=== PATIENT | female | born 1995 | race Two or more races ===

== ENCOUNTER 2020-07-07 09:22 | Emergency (ER) | payer OTHER ==
[~2020-07-07] VITALS: Ht 160 cm; Wt 90.1 kg
[2020-07-07] MEDS ORDERED: predniSONE 10 MG TABLET PO ONE (10:15)
[2020-07-07] MEDS ORDERED: ONDANSETRON ODT 4 MG TAB.RAPDIS. PO ONE (10:15)
--- NOTE | 2020-07-07 10:54 | PHYS DOC ---
Past Medical History Past Medical History: No Pertinent History Past Surgical History: Other Additional Past Surgical Histo: hernia Smoking Status: Never Smoker Alcohol Use: None General Adult EDM: Chief Complaint: FEVER HPI: HPI: Patient is a 24 year old female with no significant medical history presenting today complaining of body aches, diarrhea, vomiting, subjective fevers, symptoms began yesterday. Patient denies any abdominal pain. Denies any chance she is . Denies any hematuria chills or melena. Review of Systems: Review of Systems: Constitutional: Reports body aches and subjective fevers Eyes: Denies change in visual acuity. [] HENT: Denies nasal congestion or sore throat. [] Respiratory: Denies cough or shortness of breath. [] Cardiovascular: Denies chest pain or edema. [] GI: Reports nausea, vomiting, diarrhea. Denies abdominal pain, bloody stools : Denies dysuria. [] Musculoskeletal: Denies back pain or joint pain. [] Integument: Denies rash. [] Neurologic: Denies headache, focal weakness or sensory changes. [] Psychiatric: Denies depression or anxiety. [] Heart Score: Risk Factors: Risk Factors: DM, Current or recent (<one month) smoker, HTN, HLP, family history of CAD, obesity. Risk Scores: Score 0 - 3: 2.5% MACE over next 6 weeks - Discharge Home Score 4 - 6: 20.3% MACE over next 6 weeks - Admit for Clinical Observation Score 7 - 10: 72.7% MACE over next 6 weeks - Early Invasive Strategies Current Medications: Current Medications Medications (Trade) Dose Ordered Sig/[facility] Start Time Stop Time Status Last Admin Dose Admin Ondansetron HCl (Zofran Odt) 4 mg 1X ONCE 07/07/20 10:15 07/07/20 10:36 DC Prednisone (Prednisone) 50 mg 1X ONCE 07/07/20 10:15 07/07/20 10:36 DC Allergies: Allergies: Allergies Coded Allergies Type Severity Reaction Last Updated Verified No Known Drug Allergies 07/07/20 No Physical Exam: PE: Constitutional: Well developed, well nourished, no acute distress, non-toxic appearance. [] HENT: Normocephalic, atraumatic, bilateral external ears normal, oropharynx moist, no oral exudates, nose normal. [] Eyes: PERRLA, EOMI, conjunctiva normal, no discharge. [] Neck: Normal range of motion, no tenderness, supple, no stridor. [] Cardiovascular:Heart rate regular rhythm, no murmur [] Lungs & Thorax: Bilateral breath sounds clear to auscultation [] Abdomen: Bowel sounds normal, soft, no tenderness, no masses, no pulsatile masses. [] Skin: Warm, dry, no erythema, no rash. [] Back: No tenderness, no CVA tenderness. [] Extremities: No tenderness, no cyanosis, no clubbing, ROM intact, no edema. [] Neurologic: Alert and oriented X 3, normal motor function, normal sensory function, no focal deficits noted. [] Psychologic: Affect normal, judgement normal, mood normal. [] Current Patient Data: Vital Signs: Vital Signs Date Time Temp Pulse Resp B/P (MAP) Pulse Ox O2 Delivery O2 Flow Rate FiO2 07/07/20 10:23 98.6 135 18 133/73 (93) 99 Room Air 98.6 EKG: EKG: [] Radiology/Procedures: Radiology/Procedures: []PROCEDURE: ACUTE ABDOMEN SERIES XR ABDOMEN COMP ACUTE History: Reason: body aches, n/v/d / Spl. Instructions: / History: Technique: Upright and supine views the abdomen. Comparison: None. Findings: No consolidation or pleural effusion. No pneumothorax. No pneumoperitoneum. Nondilated air-filled loops of small bowel within the mid abdomen. Air scattered throughout the colon. Air-fluid levels within the distal colon. Impression: 1. Nonobstructed bowel gas pattern. Electronically signed by: Stephany Wang DO (07/07/2020 10:51 AM) [id number] DICTATED and SIGNED BY: STEPHANY WANG DO DATE: 07/07/20 [id number] 0 Course & Med Decision Making: Course & Med Decision Making Pertinent Labs and Imaging studies reviewed. (See chart for details) This is a 24-year-old female patient presenting to the ED today complaining of body aches, nausea, vomiting, diarrhea, subjective fevers, symptoms began last night. Vitals on arrival to the ED temperature was 98.6, heart rate 135, blood pressure 133/73, O2 sats 99% on room air, respiration 18, acute abdominal series is negative for any acute findings, UA is negative. COVID-19 test pending. Patient was given Zofran, ibuprofen. She already took Tylenol at home. She did push oral fluid in the ED, vitals right now blood pressure 105/55, heart rate 97, feeling better,discharge to home. Supportive care measures recommended. Dragon Disclaimer: Dragon Disclaimer: This electronic medical record was generated, in whole or in part, using a voice recognition dictation system. Departure Departure Impression: Primary Impression: Person under investigation for COVID-19 Additional Impressions: Diarrhea Qualified Codes: R19.7 - Diarrhea, unspecified Vomiting Qualified Codes: R11.11 - Vomiting without nausea Fever Qualified Codes: R50.9 - Fever, unspecified Disposition: 01 DC HOME SELF CARE/HOMELESS Condition: STABLE Referrals: NO PCP (PCP) follow up with your doctor in 1-2 weeks Patient Instructions: Diarrhea, [id number], Fever, Adult, Nausea and Vomiting, [id number] Additional Instructions: You were evaluated in the emergency room for your COVID-19 test is pending. Quarantine yourself in the meantime, push fluids, maintain good hand hygiene. Follow-up with your doctor in 1 to 2 weeks. Scripts Dicyclomine Hcl (DICYCLOMINE HCL) 20 Mg Tablet 1 TAB PO TID, #30 TAB 1 Refill Prov: PETER MOYA APRN 07/07/20 Ondansetron (ONDANSETRON ODT) 4 Mg Tab.rapdis 1 TAB PO PRN Q6-8HRS, #16 TAB Prov: PETER MOYA APRN 07/07/20 PETER MOYA APRN Jul 07, 2020 10:54
[2020-07-07] MEDS ORDERED: IBUPROFEN 200 MG TABLET. PO ONE (11:00)
[2020-07-07 11:24] LABS: BILIRUBIN,URINE NEGATIVE (NEG); CLARITY,URINE CLEAR; COLOR,URINE YELLOW; NITRITE,URINE NEGATIVE (NEG); PH,URINE 6.5 (<5.0-8.0); PROTEIN,URINE NEGATIVE (NEG-TRACE); UROBILINOGEN,URINE 0.2 mg/dL (0.2 mg/dL)
[2020-07-07 11:50] LABS: BACTERIA,URINE FEW /HPF (0-FEW); RBC,URINE 0 /HPF (0-2); WBC,URINE 0 /HPF (0-4)
[2020-07-07 11:58] LABS: AMPHETAMINE/METHAMPHETAMINE NEG (NEG); BARBITURATES NEG (NEG); BENZODIAZEPINES NEG (NEG); CANNABINOIDS NEG (NEG); COCAINE NEG (NEG); METHADONE NEG (NEG); OPIATES NEG (NEG); PHENCYCLIDINE NEG (NEG)
[2020-07-07] MEDS ORDERED: DICY20TA3 PO (12:23)
[2020-07-07] MEDS ORDERED: ONDA4TAB12 PO (12:23)
[2020-07-07 12:36] VITALS: BP 111/71
--- NOTE | 2020-07-09 08:58 | NUR ---
IP: Attempted to contact pt concerning COVID results. No answer. Left a voicemail to return the call.
--- NOTE | 2020-07-09 09:20 | NUR ---
IP: Pt returned the call and I informed her of the negative COVID test. Pt verbalized understanding.
== END 2020-07-07 12:38 | disposition home or self-care (01) ==
LOC: ER 09:22
DX: R19.7 Diarrhea, unspecified (principal); Z20.822 Contact with and (suspected) exposure to COVID-19; R11.11 Vomiting without nausea; R50.9 Fever, unspecified; Z98.890 Other specified postprocedural states
CPT/HCPCS: 74022; 80307; 81001; 99285; C9803; J7512; U0003; 99284